=== PATIENT | male | born 1950 | race Two or more races ===

== ENCOUNTER → 2024-03-28 | Outpatient (CLI) | payer MEDICAID ==
[2024-03-28] MEDS: REGADENOSON 0.4 MG/5 ML SYRG IV ONE ×2 (08:56→08:57)
== END | disposition home or self-care (01) ==
LOC: XY 07:15
PROVIDERS: ATTEND Internal Medicine
DX: I20.89 Other forms of angina pectoris (principal); R07.9 Chest pain, unspecified; I10 Essential (primary) hypertension; E78.5 Hyperlipidemia, unspecified; E11.9 Type 2 diabetes mellitus without complications; I65.29 Occlusion and stenosis of unspecified carotid artery; Z95.5 Presence of coronary angioplasty implant and graft
CPT/HCPCS: 78452; 93017; A9500; J2785